=== PATIENT | male | born 1965 | race African-American/Black ===

== ENCOUNTER → 2016-12-31 13:02 | Outpatient (CLI) | payer OTHER ==
[2016-06-27 11:06] VITALS: BMI 31.0
[~2016-12-31 13:02] MED LIST: PROTONIX40 MG PO; REGLAN10 MG PO
== END | disposition home or self-care (01) ==
LOC: D.RT 13:00
DX: Z02.71 Encounter for disability determination (principal)

== ENCOUNTER 2018-06-12 08:07 | Emergency (ER) | payer MEDICARE, MEDICAID ==
[~2018-06-12] VITALS: Ht 175.3 cm; Wt 102.7 kg
[2018-06-12 08:24] VITALS: Ht 175.3 cm; Wt 102.7 kg
[2018-06-12 08:51] LABS: BASOPHILS 0.1 % (0-2); EOSINOPHILS 0.1 % (0-7); HEMATOCRIT 47.7 % (42.0-54.0); HEMOGLOBIN 16.6 g/dL (13.5-17.5); IMMATURE GRANULOCYTES 0.3 % (0-5); LYMPHOCYTES 13.4 % (15-50); MCH 34.2 pg (26.0-34.0); MCHC 34.8 g/dL (31.0-37.0); MCV 98.1 fL (80.0-100.0); MEAN PLATELET VOLUME 10.4 fL (7.4-10.4); MONOCYTES 4.7 % (2-11); NEUTROPHILS 81.4 % (40-80); PLATELET COUNT 220 10x3/uL (130-400); RBC 4.86 10x6/uL (4.20-6.10); RDW 13.8 % (11.5-14.5); WBC 12.6 10x3/uL (4.8-10.8)
[2018-06-12 09:04] LABS: ALBUMIN 4.4 g/dL (3.4-5.0); ALKALINE PHOSPHATASE 109 U/L (46-116); ALT (SGPT) 27 U/L (10-68); BILIRUBIN - TOTAL 0.71 mg/dL (0.2-1.3); CALC OSMOLALITY 286 mosm/kg (275-300); CALCIUM 9.2 mg/dL (8.5-10.1); CARBON DIOXIDE 28.5 mmol/L (21.0-32.0); CHLORIDE - SERUM 105 mmol/L (98-107); CREATININE - SERUM 1.2 mg/dL (0.6-1.3); GLUCOSE 131 mg/dL (74-106); POTASSIUM - SERUM 3.9 mmol/L (3.5-5.1); PROTEIN - SERUM 9.3 g/dL (6.4-8.2); SODIUM 141 mmol/L (136-145); UREA NITROGEN 24 mg/dL (7-18); eGFR NON AFRICAN AMERICAN 68 mL/min (90-120)
[2018-06-12 09:07] LABS: LIPASE 150 U/L (73-393)
[2018-06-12 09:09] LABS: TROPONIN-I < 0.017 ng/mL (0.000-0.060)
[2018-06-12] MEDS ORDERED: ZOFRAN ODT4 MG/UDTAB PO (10:38)
[2018-06-12 10:50] VITALS: BP 130/83
== END 2018-06-12 10:53 | disposition home or self-care (01) ==
LOC: D.ER 08:07
PROVIDERS: Family Medicine
DX: R11.10 Vomiting, unspecified (principal); R10.9 Unspecified abdominal pain; Z86.39 Personal history of other endocrine, nutritional and metabolic disease

== ENCOUNTER 2018-06-14 10:15 | Emergency (ER) | payer MEDICARE, MEDICAID ==
[~2018-06-14 10:15] MED LIST changes: +ZOFRAN ODT4 MG/UDTAB PO
[2018-06-14 10:47] VITALS: Ht 175.3 cm
[2018-06-14] MEDS ORDERED: CIPRO500 MG PO (13:03)
[2018-06-14] MEDS ORDERED: FLAGYL500 MG PO (13:03)
[2018-06-14] MEDS ORDERED: ZOFRAN ODT4 MG/UDTAB PO (13:11)
[2018-06-14 13:25] VITALS: BP 137/65
== END 2018-06-14 13:27 | disposition home or self-care (01) ==
LOC: D.ER 10:15
DX: K29.60 Other gastritis without bleeding (principal)

== ENCOUNTER 2019-12-18 08:59 | Inpatient (IN) | payer MEDICARE ==
[~2019-12-18] VITALS: Ht 175.3 cm; Wt 102.5 kg
[~2019-12-18 08:59] MED LIST changes: +CIPRO500 MG PO; +FLAGYL500 MG PO
[2019-12-18 09:38] LABS: BASOPHILS 0.1 % (0-2); EOSINOPHILS 1.6 % (0-7); HEMATOCRIT 43.4 % (42.0-54.0); IMMATURE GRANULOCYTES 0.1 % (0-5); LYMPHOCYTES 35.6 % (15-50); MCH 34.1 pg (26.0-34.0); MCHC 34.6 g/dL (31.0-37.0); MCV 98.6 fL (80.0-100.0); MEAN PLATELET VOLUME 10.7 fL (7.4-10.4); MONOCYTES 8.8 % (2-11); NEUTROPHILS 53.8 % (40-80); PLATELET COUNT 194 10x3/uL (130-400); RDW 13.2 % (11.5-14.5); WBC 7.3 10x3/uL (4.8-10.8)
[2019-12-18 09:45] LABS: CALC OSMOLALITY 280 mosm/kg (275-300); CALCIUM 8.7 mg/dL (8.5-10.1); CHLORIDE - SERUM 105 mmol/L (98-107); GLUCOSE 101 mg/dL (74-106); SODIUM 140 mmol/L (136-145); UREA NITROGEN 18 mg/dL (7-18); eGFR NON AFRICAN AMERICAN 83 mL/min (90-120)
[2019-12-18 09:48] LABS: APTT 37.1 SECONDS (22.8-39.4); INR 0.94 (0.85-1.17); PROTIME 12.6 SECONDS (11.6-15.0)
[2019-12-18 09:49] LABS: D-DIMER-QUANTITATIVE < 0.27 ug/mLFEU (0.20-0.54)
[2019-12-18 10:02] LABS: ALBUMIN 4.1 g/dL (3.4-5.0); ALKALINE PHOSPHATASE 106 U/L (30-120); ALT (SGPT) 24 U/L (10-68); BILIRUBIN - TOTAL 0.82 mg/dL (0.2-1.3); CREATINE KINASE 216 UL (21-232); PRO BNP 29 pg/mL (0-125); PROTEIN - SERUM 7.9 g/dL (6.4-8.2)
[2019-12-18 10:03] LABS: TROPONIN-I < 0.017 ng/mL (0.000-0.060)
--- NOTE | 2019-12-18 11:05 | NUR ---
RECEIVED PATIENT FROM ER. ALERT AND ORIENTED. ON BEDREST. IV TO LEFT HAND, NS INFUSING @ 125ML/HR. SITE PATENT WITHOUT REDNESS OR SWELLING. VITALS STABLE. DENIES ANY NEEDS AT THIS TIME. CALL LIGHT IN REACH. WILL CONTINUE TO MONITOR.
[2019-12-18 11:59] VITALS: BP 125/69
[2019-12-18 13:17] VITALS: BP 138/64; BMI 33.4
[2019-12-18 16:06] VITALS: BP 124/71
--- NOTE | 2019-12-18 18:17 | NUR ---
ALERT AND ORIENTED. NO C/O PAIN. NO S/S OF ACUTE DISTRESS NOTED. DENIES ANY NEEDS AT THIS TIME. CALL LIGHT IN REACH. WILL CONTINUE TO MONITOR.
--- NOTE | 2019-12-18 19:45 | NUR ---
REPORT RECIEVED AND ROUNDING COMPLETE. PATIENT LAYING IN BED IN LOW FOWLERS POSITION, MEGGAN STATES HE HAS NO NEEDS AT THIS TIME. PAITNET HAS A LEFT HAND PIV THAT HAS FLUIDS RUNNING, PIV SHOWS NO S/SX OF INFILTRATION AT THIS TIME. INFORMED PATIENT THAT WE NEED A UA AND GAVE HIM A CLEAN URINAL TO USE, MARGOTH STATES HE WILL CALL ME WHEN HE URINATES. PATIENT STATES HE HAS NO OTHER NEEDS AT THIS TIME. CALL LIGHT WITHIN REACH AND BED IN LOWEST LOCKED POSITION.
[2019-12-18 20:00] VITALS: BP 113/61
[2019-12-19] VITALS: BP 124/62
--- NOTE | 2019-12-19 00:40 | NUR ---
I have reviewed this patient and I concur with the Shift Assessment completed by the Licensed Practical Nurse today this shift.
--- NOTE | 2019-12-19 00:41 | NUR ---
I have reviewed this patient and I concur with the Shift Assessment completed by the Licensed Practical Nurse today this shift.
[2019-12-19 04:00] VITALS: BP 131/75
--- NOTE | 2019-12-19 06:04 | NUR ---
PATIENT LAYING IN BED IN LOW FOWLERS POSITION, PATIENT'S EYES CLOSED BREATHING EVENH AND UNLABORED, NO DISTRESS NOTES AT THIS TIME, CALL LIGHT WITHIN REACH AND BED IN LOWEST LOCKED POSITION.
[2019-12-19 07:08] LABS: ALBUMIN 3.5 g/dL (3.4-5.0); ALKALINE PHOSPHATASE 94 U/L (30-120); ALT (SGPT) 21 U/L (10-68); BILIRUBIN - TOTAL 0.38 mg/dL (0.2-1.3); CALC OSMOLALITY 281 mosm/kg (275-300); CALCIUM 8.8 mg/dL (8.5-10.1); CHLORIDE - SERUM 108 mmol/L (98-107); CREATININE - SERUM 0.9 mg/dL (0.6-1.3); GLUCOSE 148 mg/dL (74-106); POTASSIUM - SERUM 4.5 mmol/L (3.5-5.1); SODIUM 140 mmol/L (136-145); eGFR NON AFRICAN AMERICAN > 90 mL/min (90-120)
[2019-12-19 07:20] LABS: UREA NITROGEN 13 mg/dL (7-18)
[2019-12-19 07:32] LABS: BASOPHILS 0 % (0-2); EOSINOPHILS 0 % (0-7); HEMATOCRIT 39.6 % (42.0-54.0); HEMOGLOBIN 13.7 g/dL (13.5-17.5); IMMATURE GRANULOCYTES 0.2 % (0-5); LYMPHOCYTES 6.1 % (15-50); MCH 34.1 pg (26.0-34.0); MCHC 34.6 g/dL (31.0-37.0); MCV 98.5 fL (80.0-100.0); MEAN PLATELET VOLUME 10.9 fL (7.4-10.4); NEUTROPHILS 91.7 % (40-80); PLATELET COUNT 193 10x3/uL (130-400); RBC 4.02 10x6/uL (4.20-6.10); RDW 13.3 % (11.5-14.5)
[2019-12-19 07:34] LABS: WBC 12.3 10x3/uL (4.8-10.8)
[2019-12-19 09:27] VITALS: BP 134/74
--- NOTE | 2019-12-19 10:13 | NUR ---
PT ALERT X 4. BREATH SOUNDS CLEAR BILAT. IV TO LEFT HAND, SALINE LOCKED. PT REPORTING NO PAIN OR SHORTNESS OF BREATH. PT WANTING TO GO HOME. REFUSED SOLUMEDROL. BED LOW, CALL LIGHT IN REACH. NO OTHER NEEDS AT THIS TIME.
[2019-12-19 12:16] VITALS: BP 161/84
[2019-12-19 15:08] VITALS: Ht 175.3 cm; Wt 102.5 kg
[2019-12-19 16:32] LABS: CREATINE KINASE 159 UL (21-232)
[2019-12-19 16:34] LABS: TROPONIN-I < 0.017 ng/mL (0.000-0.060)
[2019-12-19 21:38] LABS: CREATINE KINASE 149 UL (21-232); TROPONIN-I < 0.017 ng/mL (0.000-0.060)
[2019-12-19 21:48] VITALS: BP 145/73
[2019-12-20 01:07] VITALS: BP 122/57
[2019-12-20 05:11] LABS: BASOPHILS 0 % (0-2); EOSINOPHILS 0 % (0-7); HEMOGLOBIN 14.3 g/dL (13.5-17.5); IMMATURE GRANULOCYTES 0.2 % (0-5); LYMPHOCYTES 10.2 % (15-50); MCH 33.7 pg (26.0-34.0); MCHC 33.3 g/dL (31.0-37.0); MEAN PLATELET VOLUME 11.3 fL (7.4-10.4); MONOCYTES 6.8 % (2-11); NEUTROPHILS 82.8 % (40-80); PLATELET COUNT 199 10x3/uL (130-400); RBC 4.24 10x6/uL (4.20-6.10); RDW 13.5 % (11.5-14.5)
[2019-12-20 05:20] LABS: MCV 101.4 fL (80.0-100.0)
[2019-12-20 06:00] VITALS: BP 152/74
[2019-12-20 07:06] LABS: CALC OSMOLALITY 287 mosm/kg (275-300); CARBON DIOXIDE 24.8 mmol/L (21.0-32.0); CHLORIDE - SERUM 106 mmol/L (98-107); CKMB 0.9 U/L (0.0-3.6); CREATINE KINASE 182 UL (21-232); GLUCOSE 117 mg/dL (74-106); POTASSIUM - SERUM 4.3 mmol/L (3.5-5.1); SODIUM 143 mmol/L (136-145); TROPONIN-I < 0.017 ng/mL (0.000-0.060); eGFR NON AFRICAN AMERICAN 83 mL/min (90-120)
[2019-12-20 07:07] LABS: UREA NITROGEN 19 mg/dL (7-18)
--- NOTE | 2019-12-20 07:15 | NUR ---
REC'D IN BED AWAKE AND ALERT. RESP EVEN AND UNLABORED WITH NO DISTRESS NOTED. CAN EXPRESS NEEDS AND WANTS. NO C/O NOTED OR VOICED. ASSESSMENT COMPLETED. C/L IN REACH AT BEDSIDE.
[2019-12-20 09:12] VITALS: BP 120/75
[2019-12-20 13:06] VITALS: BP 139/77
--- NOTE | 2019-12-20 13:30 | NUR ---
I have reviewed this patient and I concur with the Shift Assessment completed by the Licensed Practical Nurse today this shift.
--- NOTE | 2019-12-20 14:28 | MORECARE ---
CASE MANAGEMENT DISCHARGE SUMMARY PATIENT: DAYA ESTRADA UNIT: [id number] ADM DATE: 12/18/19 AGE: 54 : 69 SEX: M ROOM/BED: D.2234 AUTHOR: TRAE GRACIA PHYSICIAN: REFERRING PHYSICIAN: KOURTNEY PACKER MD DATE OF SERVICE: 12/20/19 Discharge Plan Patient Name: DAYA ESTRADA [facility] : 1965 Planned Disposition: Anticipated Discharge Date: Discharge Date: Expected LOS: Initial Reviewer: [email or web address] Initial Review Date: 12/20/2019 Generated: 12/20/19 3:27 pm Comments DCP- Discharge Planning Updated by [email or web address]: Joana Jenkins on 12/20/19 1:[address] Attempted to meet with the patient twice today. He has asked me to come back at a later time. CM will continue to follow and assist with discharge planning/needs. Patient Name: DAYA ESTRADA Page [phone] at 1428 All edits/amendments must be made on the electronic document DICTATION DATE: 12/20/191426 LEAD SOFTWARE DEVELOPER: WICHO 12/20/191426 RPT#: [id number] DC DATE: STATUS: ADM IN [facility] [address] [place] [address] END OF REPORT
[2019-12-20 17:03] VITALS: BP 138/78
[2019-12-20 18:01] LABS: BILIRUBIN NEGATIVE (NEGATIVE); GLUCOSE NEGATIVE (NEGATIVE); KETONE NEGATIVE (NEGATIVE); NITRITE NEGATIVE (NEGATIVE); RED CELLS - URINE 0-5 /hpf (0-5); UROBILINOGEN NORMAL (NORMAL); WHITE CELLS - URINE OCC /hpf (NEGATIVE)
--- NOTE | 2019-12-20 19:42 | NUR ---
PATIENT RESTING IN BED WITH NO S/S OF DISTRESS AND DENIES NEEDS AT THIS TIME. BED IN LOWEST POSITION AND CALL LIGHT WITHIN REACH. ENCOURAGED THE PATIENT TO CALL IF HE HAS NEEDS. WILL CONTINUE TO MONITOR.
[2019-12-20 20:00] VITALS: BP 121/58
--- NOTE | 2019-12-20 20:46 | NUR ---
ADMINISTERED MEDS PER ORDERS. PATIENT DENIES OTHER NEEDS AT THIS TIME. WILL CONTINUE TO MONITOR.
[2019-12-21 04:00] VITALS: BP 132/63
[2019-12-21 06:20] LABS: BASOPHILS 0 % (0-2); EOSINOPHILS 0 % (0-7); HEMATOCRIT 41.7 % (42.0-54.0); HEMOGLOBIN 13.8 g/dL (13.5-17.5); IMMATURE GRANULOCYTES 0.2 % (0-5); LYMPHOCYTES 12.9 % (15-50); MCH 33.4 pg (26.0-34.0); MCHC 33.1 g/dL (31.0-37.0); MEAN PLATELET VOLUME 10.8 fL (7.4-10.4); MONOCYTES 7.1 % (2-11); NEUTROPHILS 79.8 % (40-80); PLATELET COUNT 173 10x3/uL (130-400); RBC 4.13 10x6/uL (4.20-6.10); RDW 13.4 % (11.5-14.5); WBC 13.9 10x3/uL (4.8-10.8)
[2019-12-21 06:33] LABS: CALC OSMOLALITY 281 mosm/kg (275-300); CALCIUM 8.9 mg/dL (8.5-10.1); CARBON DIOXIDE 25.6 mmol/L (21.0-32.0); CHLORIDE - SERUM 106 mmol/L (98-107); CREATININE - SERUM 0.9 mg/dL (0.6-1.3); GLUCOSE 112 mg/dL (74-106); MAGNESIUM - SERUM 2.1 mg/dL (1.8-2.4); POTASSIUM - SERUM 3.9 mmol/L (3.5-5.1); SODIUM 139 mmol/L (136-145); UREA NITROGEN 21 mg/dL (7-18); eGFR NON AFRICAN AMERICAN > 90 mL/min (90-120)
--- NOTE | 2019-12-21 06:50 | NUR ---
RESTING IN BED WITH EYES CLOSED. RESPIRATIONS EVEN AND UNLABORED. NO S/S OF ACUTE DISTRESS NOTED. IV TO LEFT HAND, NS INFUSING @ 125ML/HR AND ZOFRAN @ 4.7ML/HR. SITE PATENT WITHOUT REDNESS OR SWELLING. HX GASTROPARESIS. CALL LIGHT IN REACH. WILL CONTINUE TO MONITOR.
[2019-12-21 09:06] VITALS: BP 132/61
[2019-12-21] MEDS ORDERED: Tessalon Perle PO (12:11)
[2019-12-21] MEDS ORDERED: TESSALON PERLE100 MG PO (12:11)
[2019-12-21] MEDS ORDERED: LEVOFLOXACIN500 MG PO (12:11)
[2019-12-21] MEDS ORDERED: Nicoderm [PBKC] TRANSDERM (12:11)
[2019-12-21] MEDS ORDERED: PREDNISONE10 MG PO (12:12)
[2019-12-21] MEDS ORDERED: MUCINEX600 MG PO (12:12)
[2019-12-21] MEDS ORDERED: ZOFRAN ODT4 MG/UDTAB PO (12:12)
[2019-12-21] MEDS ORDERED: PROTONIX40 MG PO (12:12)
[2019-12-21] MEDS ORDERED: FLORAJEN3 CAPS460 MG PO (12:13)
[2019-12-21 12:50] VITALS: BP 131/69
--- NOTE | 2019-12-21 12:55 | MORECARE ---
CASE MANAGEMENT DISCHARGE SUMMARY PATIENT: DAYA ESTRADA UNIT: [id number] ADM DATE: 12/18/19 AGE: 54 : 69 SEX: M ROOM/BED: D.2234 AUTHOR: TRAE GRACIA PHYSICIAN: REFERRING PHYSICIAN: KOURTNEY PACKER MD DATE OF SERVICE: 12/21/19 Discharge Plan Patient Name: DAYA ESTRADA Facility: [facility]:[place] : 1965 Planned Disposition: Home with Home Health Anticipated Discharge Date: Discharge Date: Expected LOS: Initial Reviewer: [email or web address] Initial Review Date: 12/20/2019 Generated: 12/21/19 1:54 pm Comments DCP- Discharge Planning Updated by [email or web address]: Joana Jenkins on 12/20/19 1:[address] Attempted to meet with the patient twice today. He has asked me to come back at a later time. CM will continue to follow and assist with discharge planning/needs. DCPIA - Discharge Planning Initial Assessment Updated by [id number]: Gracy Coburn on 12/21/19 12:52 pm * Is the patient Alert and Oriented? Yes * How many steps to enter\exit or inside your home? * PCP [facility] * [facility] [address] * Preadmission Environment Home with Family * ADLs Independent * Equipment Nebulizer * List name and contact numbers for known caregivers / representatives who currently or will assist patient after discharge: NICHOLASJOEY COOPER [phone] * Verbal permission to speak to the caregivers and representatives has been obtained from the patient. N/A * Community resources currently utilized None * Additional services required to return to the preadmission environment? Yes * Can the patient safely return to the preadmission environment? No * Has this patient been hospitalized within the prior 30 days at any hospital? No Last DP export: 12/20/19 1:28 p Patient Name: DAYA ESTRADA Page [id number] at 1255 All edits/amendments must be made on the electronic document DICTATION DATE: 12/21/19 1254 PACKING HOUSE SUPERVISOR: WICHO 12/21/19 1254 RPT#: [id number] DC DATE: STATUS: ADM IN [facility] [address] [place] [address] END OF REPORT
--- NOTE | 2019-12-21 13:02 | MORECARE ---
CASE MANAGEMENT DISCHARGE SUMMARY PATIENT: DAYA ESTRADA UNIT: [id number] ADM DATE: 12/18/19 AGE: 54 : 69 SEX: M ROOM/BED: D.2234 AUTHOR: BASIL,DOC PHYSICIAN: REFERRING PHYSICIAN: KOURTNEY PACKER MD DATE OF SERVICE: 12/21/19 Discharge Plan Patient Name: DAYA ESTRADA Facility: [facility]:[place] : 1965 Planned Disposition: Home with Home Health Anticipated Discharge Date: Discharge Date: Expected LOS: Initial Reviewer: [email or web address] Initial Review Date: 12/20/2019 Generated: 12/21/19 2:02 pm Comments DCP- Discharge Planning Updated by [email or web address]: Gracy Coburn on 12/21/19 11:[address] Patient Name: DAYA ESTRADA Admission Status: ER Accout number: [id number] Admission Date: 12-18-2019 : 1965 Admission Diagnosis: Attending: KOURTNEY PACKER Current LOS: 3 Anticipated DC Date: Planned Disposition: Home with Home Health Primary Insurance: [employer] CHOICE PPO [facility] Discharge Planning Comments: CM met with patient to complete initial dc planning assessment. CM educated patient on the CM role and verbal consent given by patient to complete assessment. Patient lives at home with his girlfriend where he is independent with his care. At discharge patient plans to return home and feels this is a safe discharge. CM discussed availability of home health, rehab services, and medical equipment. He would like home health [facility] signed. [facility] served and explained. Patient does have a nebulizer and did not qualify for Home O2. He was 92 % on room air when he was ambulating. 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 I will fax clinicals over to [employer]. Patient denied known discharge needs at this time. CM will continue to follow and will assist as needed with dc plans/needs. Electronic Industrial Controls Mechanic: Gracy Coburn DCP- Discharge Planning Updated by [email or web address]: Joana Jenkins on 12/20/19 1:[address] Attempted to meet with the patient twice today. He has asked me to come back at a later time. CM will continue to follow and assist with discharge planning/needs. DCPIA - Discharge Planning Initial Assessment Updated by [id number]: Gracy Coburn on 12/21/19 12:52 pm * Is the patient Alert and Oriented? Yes * How many steps to enter\exit or inside your home? * PCP [facility]RITA * Pharmacy [facility] [address] * Preadmission Environment Home with Family * ADLs Independent * Equipment Nebulizer * List name and contact numbers for known caregivers / representatives who currently or will assist patient after discharge: NICHOLAS COOPER [phone] * Verbal permission to speak to the caregivers and representatives has been obtained from the patient. N/A * Community resources currently utilized None * Additional services required to return to the preadmission environment? Yes * Can the patient safely return to the preadmission environment? No * Has this patient been hospitalized within the prior 30 days at any hospital? No Coverage Notice Reviewer: [email or web address] Luis Coburn Notice Issued Date-Time: 12/21/2019 12:55 Notice Type: IM Discharge Notice Notice Delivered To: Patient Relationship to Patient: Kiln Cleaner Name: Delivery Method: HAND - Hand Delivered Marisol Days: Prior Verbal Notification: Recipient Understood Notice: Yes Recipient Signature: Yes Med Rec Note Co-signed by Attending: Coverage Notice Comment: Reviewer: [email or web address] Luis Coburn Notice Issued Date-Time: 12/21/2019 12:55 Notice Type: Patient Choice Letter Notice Delivered To: Patient Relationship to Patient: Kiln Cleaner Name: Delivery Method: HAND - Hand Delivered Marisol Days: Prior Verbal Notification: Recipient Understood Notice: Yes Recipient Signature: Yes Med Rec Note Co-signed by Attending: Coverage Notice Comment: Last DP export: 12/21/19 11:55 a Patient Name: DAYA ESTRADA Page [id number] at 1302 All edits/amendments must be made on the electronic document DICTATION DATE: 12/21/19 1302 TROUT FARMER: WICHO 12/21/19 1302 RPT#: [id number] DC DATE: STATUS: ADM IN [facility] [address] [place] [address] END OF REPORT
--- NOTE | 2019-12-21 13:10 | MORECARE ---
CASE MANAGEMENT DISCHARGE SUMMARY PATIENT: DAYA ESTRADA UNIT: [id number] ADM DATE: 12/18/19 AGE: 54 : 69 SEX: M ROOM/BED: D.2234 AUTHOR: BASIL,DOC PHYSICIAN: REFERRING PHYSICIAN: KOURTNEY PACKER MD DATE OF SERVICE: 12/21/19 Discharge Plan Patient Name: DAYA ESTRADA Facility: [facility]:[place] : 1965 Planned Disposition: Home with Home Health Anticipated Discharge Date: Discharge Date: Expected LOS: Initial Reviewer: [id number] Initial Review Date: 12/20/2019 Generated: 12/21/19 2:10 pm Comments DCP- Discharge Planning Updated by [email or web address]: Gracy Coburn on 12/21/19 11:[address] Patient Name: DAYA ESTRADA Admission Status: ER Accout number: [id number] Admission Date: 12-18-2019 : 1965 Admission Diagnosis: Attending: KOURTNEY PACKER Current LOS: 3 Anticipated DC Date: Planned Disposition: Home with Home Health Primary Insurance: [employer] CHOICE PPO [facility] Discharge Planning Comments: CM met with patient to complete initial dc planning assessment. CM educated patient on the CM role and verbal consent given by patient to complete assessment. Patient lives at home with his girlfriend where he is independent with his care. At discharge patient plans to return home and feels this is a safe discharge. CM discussed availability of home health, rehab services, and medical equipment. He would like home health [facility] signed. [facility] served and explained. Patient does have a nebulizer and did not qualify for Home O2. He was 92 % on room air when he was ambulating. 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 I will fax clinicals over to [employer]. Patient denied known discharge needs at this time. CM will continue to follow and will assist as needed with dc plans/needs. Hand Clipper: Gracy Coburn DCP- Discharge Planning Updated by [email or web address]: Joana Jenkins on 12/20/19 1:[address] Attempted to meet with the patient twice today. He has asked me to come back at a later time. CM will continue to follow and assist with discharge planning/needs. DCPIA - Discharge Planning Initial Assessment Updated by [email or web address]: rGacy Coburn on 12/21/19 12:52 pm * Is the patient Alert and Oriented? Yes * How many steps to enter\exit or inside your home? * PCP [facility]ITA * Pharmacy [facility] [address] * Preadmission Environment Home with Family * ADLs Independent * Equipment Nebulizer * List name and contact numbers for known caregivers / representatives who currently or will assist patient after discharge: NICHOLAS COOPER [phone] * Verbal permission to speak to the caregivers and representatives has been obtained from the patient. N/A * Community resources currently utilized None * Additional services required to return to the preadmission environment? Yes * Can the patient safely return to the preadmission environment? No * Has this patient been hospitalized within the prior 30 days at any hospital? No External Providers [facility] Next Contact Date: Service Request Date: Service Type: Resolution: Reviewer: Comments: Coverage Notice Reviewer: [id number] Luis Coburn Notice Issued Date-Time: 12/21/2019 12:55 Notice Type: IM Discharge Notice Notice Delivered To: Patient Relationship to Patient: Traffic Operations Manager Name: Delivery Method: HAND - Hand Delivered Marisol Days: Prior Verbal Notification: Recipient Understood Notice: Yes Recipient Signature: Yes Med Rec Note Co-signed by Attending: Coverage Notice Comment: Reviewer: [id number] Luis Coburn Notice Issued Date-Time: 12/21/2019 12:55 Notice Type: Patient Choice Letter Notice Delivered To: Patient Relationship to Patient: Traffic Operations Manager Name: Delivery Method: HAND - Hand Delivered Marisol Days: Prior Verbal Notification: Recipient Understood Notice: Yes Recipient Signature: Yes Med Rec Note Co-signed by Attending: Coverage Notice Comment: Last DP export: 12/21/19 12:02 p Patient Name: DAYA ESTRADA Page [id number] at 1310 All edits/amendments must be made on the electronic document DICTATION DATE: 12/21/19 1310 PURCHASING EXPEDITOR: WICHO 12/21/19 1310 RPT#: [id number] DC DATE: STATUS: ADM IN [facility] [address] [place] [address] END OF REPORT
--- NOTE | 2019-12-21 15:06 | NUR ---
DISCHARGED PATIENT HOME WITH FAMILY VIA WHEELCHAIR. DISCONTINUED IV, CATHETER TIP INTACT. WENT OVER DISCHARGE INSTRUCTION WITH PATIENT, VERBALIZED UNDERSTANDING. DENIES ANYTHING FURTHER.
[2019-12-22 18:08] LABS: IMMUNOGLOBULIN E 1803 IU/mL (6-495)
== END 2019-12-21 15:07 | disposition home health service (06) | DRG 189 ==
LOC: D.ER 08:59 → D.MS 09:44
PROVIDERS: Family Medicine; Internal Medicine Pulmonary Disease; ADMIT Internal Medicine Nephrology; ATTEND Internal Medicine Nephrology
DX: J96.01 Acute respiratory failure with hypoxia (principal); J43.9 Emphysema, unspecified; F12.90 Cannabis use, unspecified, uncomplicated; J20.9 Acute bronchitis, unspecified; K31.84 Gastroparesis; D64.9 Anemia, unspecified; T40.7X1A Poisoning by cannabis (derivatives), accidental (unintentional), initial encounter; R11.2 Nausea with vomiting, unspecified

== ENCOUNTER → 2020-02-06 11:41 | Outpatient (CLI) | payer MEDICARE ==
[2019-12-19 15:08] VITALS: BMI 33.3
[~2020-02-06 11:41] MED LIST changes: +FLORAJEN3 CAPS460 MG PO; +LEVOFLOXACIN500 MG PO; +MUCINEX600 MG PO; +Nicoderm [PBKC] TRANSDERM; +PREDNISONE10 MG PO; +TESSALON PERLE100 MG PO; +Tessalon Perle PO
== END | disposition home or self-care (01) ==
LOC: D.NM 11:30
PROVIDERS: ATTEND Internal Medicine Gastroenterology
DX: R11.2 Nausea with vomiting, unspecified (principal); R68.81 Early satiety; R12 Heartburn; R10.10 Upper abdominal pain, unspecified

== ENCOUNTER 2020-02-12 15:11 | Inpatient (IN) | payer MEDICARE ==
[~2020-02-12] VITALS: Ht 175.3 cm; Wt 125.0 kg
[2020-02-12 15:53] LABS: HEMATOCRIT 44.7 % (42.0-54.0); LYMPHOCYTES 18.9 % (15-50); MCH 33.5 pg (26.0-34.0); MCHC 33.6 g/dL (31.0-37.0); MCV 99.8 fL (80.0-100.0); MEAN PLATELET VOLUME 10.7 fL (7.4-10.4); NEUTROPHILS 74.6 % (40-80); PLATELET COUNT 204 10x3/uL (130-400); RBC 4.48 10x6/uL (4.20-6.10); RDW 14.2 % (11.5-14.5); WBC 8.7 10x3/uL (4.8-10.8)
[2020-02-12 15:54] LABS: APTT 32.5 SECONDS (22.8-39.4); INR 0.94 (0.85-1.17); PROTIME 12.5 SECONDS (11.6-15.0)
[2020-02-12 15:55] LABS: CALC OSMOLALITY 282 mosm/kg (275-300); CALCIUM 9.1 mg/dL (8.5-10.1); CARBON DIOXIDE 23.9 mmol/L (21.0-32.0); CHLORIDE - SERUM 105 mmol/L (98-107); CREATININE - SERUM 1.1 mg/dL (0.6-1.3); GLUCOSE 108 mg/dL (74-106); SODIUM 141 mmol/L (136-145); UREA NITROGEN 15 mg/dL (7-18); eGFR NON AFRICAN AMERICAN 75 mL/min (90-120)
[2020-02-12 16:12] LABS: ALBUMIN 4.2 g/dL (3.4-5.0); ALKALINE PHOSPHATASE 99 U/L (30-120); ALT (SGPT) 22 U/L (10-68); BILIRUBIN - TOTAL 0.61 mg/dL (0.2-1.3); CREATINE KINASE 177 UL (21-232); PRO BNP 109 pg/mL (0-125)
[2020-02-12 16:13] LABS: TROPONIN-I < 0.017 ng/mL (0.000-0.060)
--- NOTE | 2020-02-12 17:33 | NUR ---
RECIEVED PT VIA WHEELCHAIR FROM ER STAFF. PT ORIENTED TO ROOM. CALL LIGHT WITHIN REACH. REFUSED DINNER TRAY. VSS AT THIS TIME. BED IN LOWEST POSITION. 2L NC. WILL CONTINUE TO MONITOR.
[2020-02-12 18:14] VITALS: Ht 175.3 cm; Wt 125.0 kg
[2020-02-12 20:00] VITALS: BP 102/61
--- NOTE | 2020-02-12 22:08 | NUR ---
INITIAL ROUNDS COMPLETED AT 1915 HRS. PT DENIED ANY DISCOMFORT OR SOB. ASSESSMENT COMPLETED AT [address] PER CL HR 107. ALERT AND ORIENTED TO PERSON, PLACE AND TIME. LAM. IV TO LAC SL. LUNGS DIMINISHED IN BASES BILAT. 02 2LNC. PALPABLE PERIPHERAL PULSES. PT CURRENTLY RESTING WITH EYES CLOSED. RESP EVEN AND REGULAR. SR UP X2, CALL LIGHT WITHIN REACH.
--- NOTE | 2020-02-12 23:53 | NUR ---
PT RESTING WITH EYES CLOSED. RESP EVEN AND REGULAR. SR UP X1, CALL LIGHT WITHIN REACH.
[2020-02-13] VITALS: BP 133/72
--- NOTE | 2020-02-13 02:21 | NUR ---
PT RESTING WITH EYES CLOSED. RESP EVEN AND REGULAR. SR UP X1, CALL LIGHT WITHIN REACH.
[2020-02-13 04:00] VITALS: BP 109/66
--- NOTE | 2020-02-13 04:16 | NUR ---
PT RESTING WITH EYES CLOSED. RESP EVEN AND REGULAR. SR UP X1, CALL LIGHT WITHIN REACH.
--- NOTE | 2020-02-13 05:10 | NUR ---
PT REFUSED AM SOLUMEDROL AND PROTONIX. STATES HE IS GOING HOME TODAY HE HASN'T HAD ANY GOOD SLEEP SINCE BEING ADMITTED. DENIES ANY SOB. CALL LIGHT WITHIN REACH.
[2020-02-13 05:53] LABS: CALC OSMOLALITY 283 mosm/kg (275-300); CALCIUM 8.9 mg/dL (8.5-10.1); CARBON DIOXIDE 22.3 mmol/L (21.0-32.0); CHLORIDE - SERUM 106 mmol/L (98-107); CREATININE - SERUM 0.9 mg/dL (0.6-1.3); POTASSIUM - SERUM 3.7 mmol/L (3.5-5.1); SODIUM 140 mmol/L (136-145); UREA NITROGEN 15 mg/dL (7-18); eGFR NON AFRICAN AMERICAN > 90 mL/min (90-120)
[2020-02-13 05:59] LABS: GLUCOSE 163 mg/dL (74-106)
[2020-02-13 08:35] VITALS: BP 135/85
[2020-02-13 09:24] LABS: HEMATOCRIT 44.6 % (42.0-54.0); LYMPHOCYTES 10.8 % (15-50); MCH 33.2 pg (26.0-34.0); MCHC 33.6 g/dL (31.0-37.0); MCV 98.7 fL (80.0-100.0); MEAN PLATELET VOLUME 10.5 fL (7.4-10.4); NEUTROPHILS 84.3 % (40-80); PLATELET COUNT 229 10x3/uL (130-400); RBC 4.52 10x6/uL (4.20-6.10); RDW 13.7 % (11.5-14.5)
[2020-02-13 09:25] LABS: WBC 13.2 10x3/uL (4.8-10.8)
[2020-02-13 13:15] VITALS: BP 127/76
[2020-02-13] MEDS ORDERED: PREDNISONE10 MG PO (14:07)
--- NOTE | 2020-02-13 14:43 | MORECARE ---
CASE MANAGEMENT DISCHARGE SUMMARY PATIENT: DAYA ESTRADA UNIT: [id number] ADM DATE: 02/12/20 AGE: 54 : 69 SEX: M ROOM/BED: D.2113 AUTHOR: TRAE GRACIA PHYSICIAN: REFERRING PHYSICIAN: KOURTNEY PACKER MD DATE OF SERVICE: 02/13/20 Discharge Plan Patient Name: DAYA ESTRADA [facility] : 1965 Planned Disposition: Anticipated Discharge Date: Discharge Date: Expected LOS: Initial Reviewer: [email or web address] Initial Review Date: 02/13/2020 Generated: 02/13/20 3:42 pm Comments DCP- Discharge Planning Updated by [id number]: Joana Jenkins on 02/13/20 1:[address] DC ORDERS RECEIVED. I WENT TO MEET WITH THE PATIENT AND HE HAD ALREADY LEFT THE ROOM. NURSE, CHANDRA, STATES HE HAD NOT BEEN ON OXYGEN. I REVIEWED HIS NOTE FROM DECEMBER AND CALLED [facility], HE HAD NOT BEEN ON THEIR SERVICES, BUT HE WAS NOT HOME BOUND. Patient Name: DAYA ESTRADA Page [id number] at 1443 All edits/amendments must be made on the electronic document DICTATION DATE: 02/13/201441 ERGONOMIST: WICHO 02/13/201441 RPT#: [id number] DC DATE: STATUS: ADM IN [facility] [address] [place] [address] END OF REPORT
--- NOTE | 2020-02-13 15:00 | NUR ---
PATIENT IS STABLE AND VSS. PATIENT DENIES ANY NEEDS OR PAIN. ORDERS RECEVED FOR DC. WRITTEN AND VERBAL INSTRUCTIONS GIVEN TO PATIENT. PATIENT VERBALIZED UNDERSTANDING AND SIGNED INSTRUCTIONS. PATIENT REFUSED WC. ESCORTED ;PATIENT TO FRONT DOOR TO P;RIVATE VEHICLE DRIVEN BY PATIENT SPOUSE.
== END 2020-02-13 15:52 | disposition home or self-care (01) | DRG 189 ==
LOC: D.ER 15:11 → D.M2 16:16
PROVIDERS: Family Medicine; ADMIT Internal Medicine Nephrology; ATTEND Internal Medicine Nephrology
DX: J96.01 Acute respiratory failure with hypoxia (principal); J44.1 Chronic obstructive pulmonary disease with (acute) exacerbation

== ENCOUNTER → 2020-02-21 13:11 | Outpatient (CLI) | payer MEDICARE ==
[2020-02-12 18:14] VITALS: BMI 40.7
== END | disposition home or self-care (01) ==
LOC: D.LABREF 13:11
PROVIDERS: ATTEND Internal Medicine Pulmonary Disease
DX: Z11.59 Encounter for screening for other viral diseases (principal)

== ENCOUNTER → 2020-05-14 16:34 | Outpatient (CLI) | payer MEDICARE, MEDICAID ==
[2020-02-12 18:14] VITALS: BMI 40.7
== END | disposition home or self-care (01) ==
LOC: D.LAB 16:34
PROVIDERS: ATTEND Internal Medicine Pulmonary Disease
DX: Z11.59 Encounter for screening for other viral diseases (principal)